=== PATIENT | female | born 1935 | race Asian ===

== ENCOUNTER 2020-12-06 15:29 | Observation (INO) ==
[2020-12-06] MEDS ORDERED: Naloxone 0.4 MG/ML INJ IVP PRN (17:59)
[2020-12-06] MEDS ORDERED: Ondansetron ODT 4 MG TAB.RAPDIS SL PRN (17:59)
[2020-12-06 18:31] LABS: Hematocrit 29.7 % (35.3-44.9); Hemoglobin 9.5 g/dL (11.5-15.4)
[2020-12-06] MEDS: Ringers Solution, Lactated 1,000 ML IVC SCH (18:50)
[2020-12-07 02:02] LABS: White Blood Count 13.7 K/mcL (4.3-11.1)
[2020-12-07 02:03] LABS: Basophils % 0.2 %; Eosinophils % 0.1 %; Hematocrit 27.3 % (35.3-44.9); Hemoglobin 8.7 g/dL (11.5-15.4); Immature Granulocytes % 0.7 % (0-4); Lymphocytes # 0.5 K/mcL (0.6-4.6); Lymphocytes % 3.9 %; Mean Corpuscular HGB Conc 31.9 g/dL (31.6-35.5); Mean Corpuscular Hemoglobin 31.8 pg (28.0-33.3); Mean Corpuscular Volume 99.6 fL (83.0-100.0); Mean Platelet Volume 10.6 fL (9.4-12.4); Monocytes # 0.9 K/mcL (0.0-1.3); Monocytes % 6.7 %; Neutrophils # 12.1 K/mcL (1.6-8.9); Platelet Count 149 K/mcL (140-400); Red Blood Count 2.74 M/mcL (3.82-4.97); Red Cell Distribution Width 17.2 % (11.5-14.5); Segmented Neutrophils % 88.4 %
[2020-12-07 02:24] LABS: BUN/Creatinine Ratio 40 (6-26); Blood Urea Nitrogen 27 mg/dL (8-23); Calcium 7.9 mg/dL (8.6-10.3); Carbon Dioxide 16 mEq/L (23-29); Chloride 111 mEq/L (98-107); Glucose 131 mg/dL (70-105); Osmolality,Calculated 297 (280-300); Potassium 3.6 mEq/L (3.5-5.1); Sodium 140 mEq/L (136-145); eGFR For African Americans > 60 (> 60); eGFR For Non-African Americans > 60 (> 60)
[2020-12-07 08:15] LABS: Hematocrit 25.2 % (35.3-44.9); Hemoglobin 8.2 g/dL (11.5-15.4)
[2020-12-07] MEDS ORDERED: *HR* Propofol 200 MG/20 ML VIAL IVP ONE (11:42)
[2020-12-07] MEDS ORDERED: Lidocaine -MPF 2% 5 ML VIAL SQ ONE (11:42)
[2020-12-07] MEDS ORDERED: EPHEDrine 50 MG/ML VIAL IVP ONE (11:42)
[2020-12-07] MEDS ORDERED: *HR* Phenylephrine 10 MG/ML VIAL IVC ONE (11:42)
[2020-12-07 13:05] LABS: Adenovirus Not Detected (Not Detect); Bordetella Pertussis Not Detected (Not Detect); Chlamydophila pneumoniae Not Detected (Not Detect); Coronavirus 229E Not Detected (Not Detect); Coronavirus HKU1 Not Detected (Not Detect); Coronavirus NL63 Not Detected (Not Detect); Coronavirus OC43 Not Detected (Not Detect); Human Metapneumovirus Not Detected (Not Detect); Human Rhinovirus/Enterovirus Not Detected (Not Detect); Influenza A Subtype 2009 H1 Not Detected (Not Detect); Influenza B Not Detected (Not Detect); Mycoplasma pneumoniae Not Detected (Not Detect); Parainfluenza Virus 1 Not Detected (Not Detect); Parainfluenza Virus 2 Not Detected (Not Detect); Parainfluenza Virus 3 Not Detected (Not Detect); Parainfluenza Virus 4 Not Detected (Not Detect); Respiratory Syncytial Virus Not Detected (Not Detect); SARS-CoV-2 Not Detected (Not Detect)
[2020-12-07] MEDS: Ringers Solution, Lactated 1,000 ML IVC SCH (16:30)
[2020-12-07] MEDS: Pantoprazole 40 MG VIAL IVP SCH (18:22)
[2020-12-08 02:08] LABS: Hematocrit 24.2 % (35.3-44.9); Hemoglobin 7.5 g/dL (11.5-15.4)
[2020-12-08] MEDS: Pantoprazole 40 MG VIAL IVP SCH (05:10)
[2020-12-08 10:47] VITALS: BP 111/63
== END 2020-12-08 11:43 | disposition home or self-care (01) ==
LOC: 2ANU → SUATTDRO 17:22
PROVIDERS: ADMIT Student in an Organized Health Care Education/Training Program; ATTEND Family Medicine

== ENCOUNTER 2021-05-21 13:55 | Inpatient (IN) ==
[2021-05-21] MEDS ORDERED: *HR* HYDROcodone/Acet 5/325 mg TABLET PO PRN (16:02)
[2021-05-21] MEDS ORDERED: Acetaminophen 325 MG TABLET PO PRN (16:02)
[2021-05-21] MEDS ORDERED: Ondansetron 4 MG/2 ML VIAL IVP PRN (16:02)
[2021-05-21] MEDS ORDERED: Naloxone 0.4 MG/ML INJ IVP PRN (16:02)
[2021-05-21] MEDS ORDERED: Furosemide 40 MG/4 ML VIAL IVP ONE (16:40)
[2021-05-21] MEDS: Furosemide 40 MG/4 ML VIAL IVP SCH (18:24)
[2021-05-21] MEDS: carvediloL 6.25 MG TABLET PO SCH (19:14)
[2021-05-21] MEDS ORDERED: Isovue-370 500 ML BOTTLE IVP ONE (20:19)
[2021-05-21] MEDS: Albumin 25% 25gram/100mL 25 GM/100 ML IV.SOLN IVPB SCH (20:41)
[2021-05-21] MEDS: Ipratropium/Albuterol Neb 3 ML IH SCH (21:38)
[2021-05-22] MEDS: Ipratropium/Albuterol Neb 3 ML IH SCH ×3 (04:02→15:52)
[2021-05-22 04:45] LABS: Basophils % 0.5 %; Eosinophils # 0.1 K/mcL (0.0-0.6); Hematocrit 48.7 % (35.3-44.9); Hemoglobin 15.1 g/dL (11.5-15.4); Immature Granulocytes % 0.2 % (0-4); Lymphocytes # 0.5 K/mcL (0.6-4.6); Lymphocytes % 7.5 %; Mean Corpuscular Hemoglobin 31.9 pg (28.0-33.3); Mean Corpuscular Volume 102.7 fL (83.0-100.0); Mean Platelet Volume 10.5 fL (9.4-12.4); Monocytes # 0.3 K/mcL (0.0-1.3); Monocytes % 4.6 %; Neutrophils # 5.2 K/mcL (1.6-8.9); Platelet Count 113 K/mcL (140-400); Red Blood Count 4.74 M/mcL (3.82-4.97); Red Cell Distribution Width 16.9 % (11.5-14.5); Segmented Neutrophils % 85.2 %; White Blood Count 6.1 K/mcL (4.3-11.1)
[2021-05-22 05:03] LABS: Alanine Aminotransferase 12 Units/L (7-52); Albumin 3.6 g/dL (3.5-5.7); Albumin/Globulin Ratio 1.9 (1.1-2.2); Alkaline Phosphatase 53 Units/L (34-104); Aspartate Amino Transferase 21 Units/L (13-39); BUN/Creatinine Ratio 32 (6-26); Bilirubin,Total 1.1 mg/dL (0.3-1.0); Blood Urea Nitrogen 33 mg/dL (8-23); Calcium 8.6 mg/dL (8.6-10.3); Carbon Dioxide 25 mEq/L (23-29); Chloride 112 mEq/L (98-107); Globulin 1.9 g/dL (2.4-3.5); Glucose 83 mg/dL (70-105); Magnesium 2.1 mg/dL (1.6-2.6); Osmolality,Calculated 310 (280-300); Phosphorous 4.4 mg/dL (2.7-4.5); Potassium 3.6 mEq/L (3.5-5.1); Sodium 147 mEq/L (136-145); Total Protein 5.5 g/dL (6.4-8.9); eGFR For African Americans > 60 (> 60); eGFR For Non-African Americans 51 (> 60)
[2021-05-22 05:05] LABS: Chol/HDL Ratio 4.1 (0-4.9); Cholesterol 145 mg/dL (< 200); HDL Cholesterol 35 mg/dL (40-59); LDL Cholesterol,Calculated 92 mg/dL (< 100); Lactate Dehydrogenase 236 Units/L (140-271); Total Protein 5.5 g/dL (6.4-8.9); Triglycerides 90 mg/dL (< 150)
[2021-05-22 05:07] LABS: INR 1.4; Prothrombin Time 15.6 Seconds (9.4-12.1)
[2021-05-22 05:23] LABS: Thyroid Stimulating Hormone 14.547 mcIU/mL (0.340-5.600)
[2021-05-22] MEDS ORDERED: *HR* Enoxaparin 40 MG/0.4 ML SYRINGE SQ SCH (06:00)
[2021-05-22 08:10] VITALS: TEMP 97.8
[2021-05-22] MEDS ORDERED: lisinopriL 10 MG TABLET PO SCH (09:00)
[2021-05-22] MEDS: carvediloL 6.25 MG TABLET PO SCH (09:00)
[2021-05-22] MEDS ORDERED: Aspirin 81 MG TAB.CHEW PO SCH (09:00)
[2021-05-22] MEDS ORDERED: Metoprolol XL (24 HR) Succ 25 MG TAB.ER.24H PO SCH ×2 (09:00)
[2021-05-22] MEDS: Albumin 25% 25gram/100mL 25 GM/100 ML IV.SOLN IVPB SCH (09:01)
[2021-05-22 10:37] LABS: Estimated Average Glucose 103 mg/dl; Hemoglobin A1C 5.2 %
[2021-05-22] MEDS ORDERED: Isovue-370 500 ML BOTTLE IVP ONE (11:45)
[2021-05-22] MEDS: Furosemide 40 MG/4 ML VIAL IVP SCH (11:54)
[2021-05-22 11:59] VITALS: PULSE 60
[2021-05-22 12:00] VITALS: BP 112/72
[2021-05-22] MEDS ORDERED: *HR* Heparin 5,000 UNIT/ML VIAL IVP PRN ×2 (15:12)
[2021-05-22] MEDS ORDERED: *HR* Heparin 5,000 UNIT/ML VIAL IVP ONE (15:12)
[2021-05-22] MEDS ORDERED: Heparin 25,000UNIT/250ML 1/2NS 25,000 UNIT/250 ML IV.SOLN IVC SCH (15:15)
[2021-05-22] MEDS ORDERED: *HR* Dextrose 50 % in Water (Syg) 50 ML SYRINGE IVP PRN (15:36)
[2021-05-22] MEDS ORDERED: Dextrose Gel 15 GM/37.5 ML TUBE PO PRN ×2 (15:36)
[2021-05-22] MEDS ORDERED: D5% in Water 1,000 ML IVC PRN (15:36)
[2021-05-22 17:00] VITALS: O2SAT 93
[2021-05-22 17:33] LABS: RBC,Pleural Fluid < 2000 RBC/mcL
[2021-05-22 17:57] LABS: Glucose,Pleural Fluid 98 mg/dL (No Ref Range); LDH,Pleural Fluid 60 Units/L (No Ref Range); Total Protein,Pleural Fluid < 2.0 g/dL
[2021-05-22] MEDS ORDERED: Albumin 25% 25gram/100mL 25 GM/100 ML IV.SOLN IVPB SCH (19:00)
[2021-05-22 20:08] LABS: Appearance of Pleural Fl Clear (Clear); Basophils,Pleural Fluid 0 %; Eosinophils,Pleural Fluid 0 %; Monocytes,Pleural Fluid 0 %
[2021-05-23] MEDS ORDERED: *HR* Enoxaparin 30 MG/0.3 ML SYRINGE SQ SCH (06:00)
[2021-05-24 22:47] LABS: Fluid Source for Cholesterol PLEURAL FLUID
[2021-05-25 10:37] LABS: Cholesterol,Body Fluid 20 mg/dL
== END 2021-05-22 17:04 | disposition short-term general hospital (02) | DRG 280 ==
LOC: 2ANU → SUATTDRO 15:25
PROVIDERS: ADMIT Internal Medicine; ATTEND Internal Medicine